=== PATIENT | male | born 1985 | race Two or more races ===

== ENCOUNTER 2021-09-06 10:45 | Emergency (ER) | payer OTHER ==
[2021-09-06 11:02] VITALS: BP 115/82; PULSE 105; RESP 18; TEMP 98.9
--- NOTE | 2021-09-06 12:39 | ED ---
General Adult HPI - General Chief complaint: Upper Respiratory Infection Stated complaint: Covid+/antibodies Time Seen by Provider: 09/06/21 12:10 Source: patient, RN notes reviewed Mode of arrival: ambulatory Limitations: no limitations - History of Present Illness Initial comments: Well-appearing 36-year-old male, alert and oriented 4, presents to the emergency room with complaints of covid exposure. He states that 2 days ago he had a low-grade fever and body aches and he is now losing his taste and smell. Patient has not been vaccinated. He has no medical history. He is a smoker. He is requesting the monoclonal antibody infusion. He denies any shortness of breath, nausea vomiting or diarrhea. Oxygen saturation is 100% on room air. -: days(s) (2) Severity scale (1-10): 0 - Related Data Allergies Allergy/AdvReac Type Severity Reaction Status Date / Time No Known Allergies Allergy Verified 09/06/21 10:58 Review of Systems ROS Statement: Those systems with pertinent positive or pertinent negative responses have been documented in the HPI. ROS Other: All systems not noted in ROS Statement are negative. Past Medical History Past Medical History: No Reported History History of Any Multi-Drug Resistant Organisms: None Reported Past Surgical History: No Surgical Hx Reported Past Psychological History: No Psychological Hx Reported Smoking Status: Current every day smoker Past Alcohol Use History: Occasional Past Drug Use History: None Reported General Exam Limitations: no limitations General appearance: alert, in no apparent distress Head exam: Present: atraumatic, normocephalic, normal inspection Eye exam: Present: normal appearance, EOMI ENT exam: Present: normal exam, normal oropharynx, mucous membranes moist Neck exam: Present: normal inspection, full ROM. Absent: tenderness, meningismus, lymphadenopathy, thyromegaly Respiratory exam: Present: normal lung sounds bilaterally. Absent: respiratory distress, wheezes, rales, rhonchi, stridor Cardiovascular Exam: Present: tachycardia. Absent: JVD Extremities exam: Present: full ROM, normal capillary refill Neurological exam: Present: alert, oriented X3, normal gait Psychiatric exam: Present: normal affect, normal mood Skin exam: Present: warm, dry, intact, normal color. Absent: rash, cyanosis, diaphoretic Course Vital Signs 09/06/21 10:59 Temperature 98.9 F Pulse Rate 105 H Respiratory 18 Rate Blood Pressure 115/82 O2 Sat by Pulse 100 Oximetry Medical Decision Making - Medical Decision Making This is a well-appearing 36-year-old male that presents to the emergency room after positive Covid exposure. He has had body aches and low-grade fever loss of taste and smell over the past 2 days. He did test positive today in the emergency room. He has not been vaccinated. He is requesting the monoclonal antibody infusion. An order was written and he is referred to [facility] for this medication. Lung sounds are clear to auscultation. He is afebrile here. Oxygen saturation 100% on room air. He has no medical history not on any medications on a daily basis - Lab Data Lab Results 09/06/21 Range/Units 11:05 Coronavirus (PCR) Detected A (Not Detectd) Disposition Clinical Impression: COVID-19 Disposition: HOME SELF-CARE Condition: Good Instructions (If sedation given, give patient instructions): Coronavirus Disease 2019 (COVID-19) Additional Instructions: Follow-up with [facility] for the monoclonal antibodies. Return to the emergency room with any new or worsening symptoms. Self quarantine for 10 days from symptom onset and 24 hours without fever. You can take vitamin C, vitamin D and zinc for immune health. Is patient prescribed a controlled substance at d/c from ED?: No Referrals: Constantine Blas MD [Primary Care Provider] - 1-2 days Time of Disposition: 12:39
== END 2021-09-06 12:45 | disposition home or self-care (01) ==
LOC: EC 10:45
DX: U07.1 COVID-19 (principal); F17.200 Nicotine dependence, unspecified, uncomplicated
CPT/HCPCS: 87635; 99283